=== PATIENT | male | born 1975 | race Caucasian/White ===

== ENCOUNTER 2022-10-30 09:16 | Day surgery (SDC) | payer BC ==
[2022-10-29 08:43] VITALS: BMI 39.5
[~2022-10-30 09:16] MED LIST: LACTATED RINGERS 1,000 ML IV SCH; LIDOCAINE 1% (10MG/ML) FOR IV START INTRADERMA PRN
[2022-10-30] MEDS ORDERED: LACTATED RINGERS 1,000 ML IV ONE (10:14)
[2022-10-30 10:20] VITALS: TEMP 97.7
--- NOTE | 2022-10-30 10:29 | P.GSHP ---
History of Present Illness H&P Date: 10/30/22 CHIEF COMPLAINT: Colon screen HISTORY OF PRESENT ILLNESS: The patient is a 47-year-old male who presents for colon screen. Lower endoscopy was offered for further evaluation and management. PAST MEDICAL HISTORY: Please see list. PAST SURGICAL HISTORY: Please see list. MEDICATIONS: Please see list. ALLERGIES: Please see list. SOCIAL HISTORY: No illicit drug use FAMILY HISTORY: No reports of Crohn disease or ulcerative colitis. REVIEW OF ORGAN SYSTEMS: CONSTITUTIONAL: No reports of fevers or chills. PHYSICAL EXAM: VITAL SIGNS: Stable GENERAL: Well-developed pleasant in no acute distress. HEENT: No scleral icterus. Extraocular movements grossly intact. Moist buccal mucosa. NECK: Supple without lymphadenopathy. CHEST: Unlabored respirations. Equal bilateral excursions. CARDIOVASCULAR: Regular rate and rhythm. Distal 2+ pulses. ABDOMEN: Soft, nontender, nondistended. MUSCULOSKELETAL: No clubbing, cyanosis, or edema. ASSESSMENT: 1. Colon screen. PLAN: 1. Recommend proceeding with a lower endoscopy Past Medical History Past Medical History: Deep Vein Thrombosis (DVT), Hypertension, Pulmonary Embolus (PE) Additional Past Medical History / Comment(s): obesity, benign brain tumor requiring surgery and rehab of PT, OT and speech post surgery, left with current pseudomenigoseal fluid accumultaion that results in positioning sensitivity History of Any Multi-Drug Resistant Organisms: None Reported Additional Past Surgical History / Comment(s): hemangiomablastoma benign brain tumor removal, wisdom teeth extraction, ingrown toenail removal Past Anesthesia/Blood Transfusion Reactions: No Reported Reaction, Motion Sickness Smoking Status: Never smoker - Past Family History Mother History Unknown: Yes Family Medical History: Hypertension Father Family Medical History: CVA/TIA Medications and Allergies Home Medications Medication Instructions Recorded Confirmed Type lisinopriL [Prinivil] 10 mg PO DAILY 10/29/22 10/29/22 History Allergies Allergy/AdvReac Type Severity Reaction Status Date / Time No Known Allergies Allergy Verified 10/29/22 08:35 Surgical - Exam Vital Signs Temp Pulse Resp BP Pulse Ox 97.7 F 84 18 186/92 98 10/30/22 10:19 10/30/22 10:19 10/30/22 10:19 10/30/22 10:19 10/30/22 10:19
[2022-10-30] MEDS ORDERED: PROPOFOL 10 MG/ML 20 ML VIAL IV ONE (10:55)
[2022-10-30] MEDS ORDERED: METOPROLOL TARTRATE 5 MG/5 ML VIAL IVP ONE (10:55)
[2022-10-30 11:39] VITALS: BP 131/87; PULSE 68; RESP 15
--- NOTE | 2022-10-30 12:14 | P.PCN ---
Date of Procedure: 10/30/22 Description of Procedure: PREOPERATIVE DIAGNOSIS: Family history colon polyps Colonoscopy screening POSTOPERATIVE DIAGNOSIS: Sigmoid colon polyps OPERATION: Colonoscopy to the ileocecal valve and appendiceal orifice, cecum Colonoscopy with cold forceps biopsy SURGEON: Trina Lange MD. ANESTHESIA: MAC. INDICATIONS: The patient is an 47-year-old male who presents family history of colon polyps and first colon screening. Benefits and risks were described and informed consent was obtained. DESCRIPTION OF PROCEDURE: The patient had undergone Sutab prep. The patient had been brought into the operating room and laid in the left lateral decubitus position. After adequate intravenous sedation, the rectum was examined with 2% lidocaine jelly. The prostate was unremarkable. No external hemorrhoids were encountered. The rectal tone was within normal limits. No lesions were palpated in the rectal vault. An Olympus colonoscope was advanced until the cecum, ileocecal valve and appendiceal orifice were clearly viewed. The prep was excellent. No sigmoid diverticulosis was encountered. Colonic polyps were found and removed. No evidence of focal colitis was found. Retroflexion of the scope demonstrated grade 1 internal hemorrhoids without active bleeding or inflammation. The colon was desufflated. The patient had tolerated the procedure well. Withdrawal time was over 6 minutes. FINDINGS: Aronchick preparation quality scale 1 (1-5) Internal hemorrhoids, grade 1 No external hemorrhoids No arteriovenous malformations. Sigmoid diverticulosis Removal of 2 polyps: - Cold forceps biopsy at 20 cm from the anal verge, 4 mm polyp. - Cold forceps biopsy at 25 cm from the anal verge, 4 mm polyp. No focal colitis. RECOMMENDATIONS: Repeat colonoscopy in 2026 Plan - Discharge Summary New Discharge Prescriptions: Continue lisinopriL [Prinivil] 10 mg PO DAILY Discharge Medication List lisinopriL [Prinivil] 10 mg PO DAILY 10/29/22 [History] Follow up Appointment(s)/Referral(s): Trina Lange MD [STAFF PHYSICIAN] - As Needed Patient Instructions/Handouts: Colorectal Polyps (GEN) Activity/Diet/Wound Care/Special Instructions: Repeat colonoscopy in 5 years2026 Discharge Disposition: HOME SELF-CARE
== END 2022-10-30 12:20 | disposition home or self-care (01) ==
LOC: ORWHC2ENDO 09:16
PROVIDERS: ATTEND Surgery Plastic and Reconstructive Surgery
DX: Z12.11 Encounter for screening for malignant neoplasm of colon (principal); K64.0 First degree hemorrhoids; K57.30 Diverticulosis of large intestine without perforation or abscess without bleeding; I10 Essential (primary) hypertension; Z86.711 Personal history of pulmonary embolism; Z86.718 Personal history of other venous thrombosis and embolism; Z82.49 Family history of ischemic heart disease and other diseases of the circulatory system; Z82.3 Family history of stroke; Z79.899 Other long term (current) drug therapy
CPT/HCPCS: 88305; 45380; J2704

== ENCOUNTER → 2023-07-31 | Outpatient (CLI) | payer BC ==
--- NOTE | 2023-07-31 12:24 | XR ---
EXAMINATION TYPE: XR lumbosacral spine min 4V DATE OF EXAM: 07/31/2023 CLINICAL HISTORY: pain COMPARISON: NONE TECHNIQUE: Frontal, lateral, and oblique images of the lumbar spine are obtained. FINDINGS: There are 5 lumbar type vertebral bodies identified. The lumbar spine shows satisfactory alignment without evidence of acute fracture or dislocation. Vertebral body heights are within normal limits. Naii-os-ejrdfftq multilevel degenerative disc space narrowing and spondylosis. The overlyi ng soft tissue appears unremarkable. IMPRESSION: No acute fracture or dislocation is seen in the lumbar spine.ICD 10 NO FRACTURE, INITIAL EVALUATION
== END | disposition home or self-care (01) ==
LOC: RADXRMAIN 11:38
PROVIDERS: ATTEND Family Medicine
DX: M54.40 Lumbago with sciatica, unspecified side (principal)
CPT/HCPCS: 72110

== ENCOUNTER → 2023-08-04 | Outpatient (CLI) | payer BC ==
--- NOTE | 2023-08-04 21:32 | MR ---
EXAMINATION TYPE: MR lumbar spine wo/w con DATE OF EXAM: 08/04/2023 8:57 PM CLINICAL INDICATION:Male, 47 years old with history of M54.40 LUMBAGO WITH SCIATICA; PHH, Low back pa in, bilateral leg numbness with new onset urinary incontinence COMPARISON: None TECHNIQUE: Multi planar, multi sequence imaging was performed utilizing: T1-weighted, T2-weighted, a nd turbo inversion recovery imaging of the lumbar spine. IV Contrast: 14.5 cc Gadavist. None. FINDINGS: Alignment: The lumbar vertebral bodies have preserved heights and alignment. Cord: The conus medullaris and the distal spinal cord appear unremarkable with regards to their signa l intensity and morphology. Bones/Discs: Minimal disc degeneration changes worse at L2-L3 with disc space narrowing, osteophytes and Modic endplate changes. No abnormal bony edema on inversion recovery sequences. Scattered Schmorl 's nodes are also present. Intervertebral disc signal is maintained. T12-L1: No evidence of significant spinal canal stenosis or neural foraminal stenosis. L1-L2: No evidence of significant spinal canal stenosis or neural foraminal stenosis. L2-L3: Disc bulge and facet joint arthropathy result in mild spinal canal and mild bilateral neural f oraminal stenosis. L3-L4: Disc bulge and facet joint arthropathy result in mild spinal canal and mild bilateral neural f oraminal stenosis. L4-L5: Central disc protrusion with possible extrusion of disc material with migration up to 7 mm. Th is results in severe spinal canal stenosis and mild to moderate right and moderate severe left neural foraminal stenosis. L5-S1: The disc is rounded posterior morphology without significant spinal canal stenosis. Facet join t arthropathy with mild to moderate bilateral neural foraminal stenosis. No significant spinal canal or neural foraminal stenosis in the remainder of the visualized levels. Other findings: None. IMPRESSION: L4-L5: Central in left central disc protrusion/extrusion with severe spinal canal stenosis and mild t o moderate right and moderate to severe left neural foraminal stenosis.
== END | disposition home or self-care (01) ==
LOC: RADMRIMAIN 18:58
PROVIDERS: ATTEND Family Medicine
DX: M99.73 Connective tissue and disc stenosis of intervertebral foramina of lumbar region (principal); M51.16 Intervertebral disc disorders with radiculopathy, lumbar region; M48.061 Spinal stenosis, lumbar region without neurogenic claudication
CPT/HCPCS: 72158; A9585